=== PATIENT | male | born 1995 | race Caucasian/White ===

== ENCOUNTER 2018-04-06 16:28 | Emergency (ER) | payer OTHER, MEDICAID, SELFPAY ==
--- NOTE | 2018-04-06 16:36 | ED_ITS ---
HPI - URI/Sore Throat <SANTOS Hope - Last Filed: 04/06/18 21:59> General Chief Complaint: Nausea/Vomiting/Diarrhea Stated Complaint: sick Time Seen by Provider: 04/06/18 16:35 Source: patient Mode of arrival: ambulatory Limitations: no limitations History of Present Illness HPI Narrative: 22-year-old healthy male that is a nonsmoker here for complaint of having cold and cough like symptoms over the past several days. He also reports that he has had periodic nausea and vomiting as well. He denies having a fever although he does state he has had some chills. He denies other contacts having similar symptoms. In between. The nausea vomiting he has been able to tolerate p.o. fluids. He denies any other concerns or complaints at this timeframe. MD Complaint: nasal congestion and other Related Data Previous Rx's Medication Instructions Recorded ondansetron 4 mg PO BID-TID PRN #10 tab 04/06/18 Review of Systems <SANTOS Hope - Last Filed: 04/06/18 21:59> Constitutional Denies chills, Denies fever(s), Denies lethargy and Denies weakness Eyes Denies change in vision, Denies eye discharge, Denies irritation and Denies loss of vision ENT Ears, Nose, Mouth, and Throat: Denies change in voice, Denies neck pain and Denies sore throat Cardiovascular Denies chest pain, Denies irregular heart rhythm, Denies lightheadedness, Denies palpitations, Denies dyspnea, Denies dyspnea on exertion and Denies orthopnea Respiratory Denies cough, Denies dyspnea, Denies dyspnea on exertion and Denies wheezing Gastrointestinal Gastrointestinal: Denies abdominal pain, Denies change in bowel habits, Denies diarrhea, Denies nausea and Denies vomiting Genitourinary Denies hematuria, Denies flank pain, Denies urinary incontinence and Denies urinary urgency Musculoskeletal Denies neck pain Integumentary/Breasts Denies pruritus, Denies erythema, Denies rash and Denies wounds Neurologic Denies confusion, Denies loss of vision and Denies weakness Psychiatric Denies anxiety, Denies confusion, Denies depression, Denies homicidal ideation and Denies suicidal ideation Endocrine Denies palpitations Hematologic/Lymphatic Denies easy bruising Allergic/Immunologic Denies wheezing Exam <SANTOS Hope - Last Filed: 04/06/18 21:59> Initial Vital Signs Initial Vital Signs: Vital Signs Temperature 98.2 F 04/06/18 16:37 Pulse Rate 88 04/06/18 16:37 Respiratory Rate 16 04/06/18 16:37 Blood Pressure 145/76 H 04/06/18 16:37 Pulse Oximetry 98 04/06/18 16:37 Const General: cooperative and well developed Nutritional Appearance: well nourished Orientation: alert, awake, oriented x3 and not confused HENMT Mouth: oral mucosae normal, oropharynx normal and moist mucous membranes Eyes Conjunctivae: conjunctivae normal Sclera: sclerae normal Pupils: PERRL EOM: EOM intact bilaterally Resp Effort & Inspection: normal respiratory effort, able to speak in complete sentences, no respiratory distress and no use of accessory muscles Auscultation: clear to auscultation bilaterally, no rales, no rhonchi and no wheezes Cardio Rate: regular rate Rhythm: regular rhythm Heart Sounds: no click, no gallops, no murmurs and no rubs Pulses: normal peripheral pulses Skin General: no rashes or lesions noted, No jaundice and No petechiae Neuro General: alert, oriented x3, gait normal and no focal motor deficits Speech: speech normal <DO Luctia Abreu Last Filed: 04/07/18 18:32> Initial Vital Signs Initial Vital Signs: Vital Signs Temperature 98.2 F 04/06/18 16:37 Pulse Rate 88 04/06/18 16:37 Respiratory Rate 16 04/06/18 16:37 Blood Pressure 145/76 H 04/06/18 16:37 Pulse Oximetry 98 04/06/18 16:37 Course <SANTOS Hope - Last Filed: 04/06/18 21:59> Orders Ordered: Discontinued Medications Ondansetron HCl (Zofran Odt) 4 mg SL NOW ONE Stop: 04/06/18 17:02 Last Admin: 04/06/18 17:17 Dose: 4 mg Vital Signs - 8 hr 04/06/18 16:37 04/06/18 18:21 Temperature 98.2 F Pulse Rate 88 60 Respiratory Rate 16 18 Blood Pressure 145/76 H 122/61 Pulse Oximetry 98 100 <Xochitl Segundo DO - Last Filed: 04/07/18 18:32> Orders Ordered: Discontinued Medications Ondansetron HCl (Zofran Odt) 4 mg SL NOW ONE Stop: 04/06/18 17:02 Last Admin: 04/06/18 17:17 Dose: 4 mg Vital Signs - 8 hr 04/06/18 16:37 04/06/18 18:21 Temperature 98.2 F Pulse Rate 88 60 Respiratory Rate 16 18 Blood Pressure 145/76 H 122/61 Pulse Oximetry 98 100 MDM - URI/Sore Throat <SANTOS Hope - Last Filed: 04/06/18 21:59> Lab Data Lab Results 04/06/18 Range/Units 17:20 Influenza A & B (PCR) Negative (Negative) MDM Narrative Medical decision making narrative: Influenza swab was obtained and was negative. Presents as a viral illness. [id number] Tylenol or Motrin as needed for discomfort. Plenty of fluids. Zofran is prescribed to help with nausea vomiting. Follow up with primary care provider later this week. For any worsening symptoms return to the emergency room. <Xochitl Segundo DO - Last Filed: 04/07/18 18:32> Lab Data Lab Results 04/06/18 Range/Units 17:20 Influenza A & B (PCR) Negative (Negative) Discharge Plan Departure Patient Disposition: Home Clinical Impression: Viral upper respiratory illness Discharge Date/Time: 04/06/18 18:22 Interventions: ED Discharge Assessment Last Done: 04/06/18 18:21 Instructions: DI for Nausea -- Adult Activity Restrictions/Additional Instructions: Influenza swab was obtained was negative. Signs and symptoms presents as a viral illness. This will take time to resolve. Plenty of fluids and rest. Use [id number] Tylenol or Motrin as needed for discomfort or fever. Zofran is prescribed to help with nausea vomiting use as directed. Follow up with her primary care provider later this week for re-evaluation. For any worsening symptoms return emergency room Prescriptions: New ondansetron 4 mg tablet,disintegrating 4 mg PO BID-TID PRN (Reason: nausea and vomiting) Qty: 10 RF: 0 Referrals: [facility] [Provider Group] <Xochitl Segundo DO - Last Filed: 04/07/18 18:32> Cosign ED Attending Amyature Attestation: I was immediately available in the department for consultation. This documentation has been reviewed and I agree with assessment and plan. Supervised by Xochitl Segundo, DO
[2018-04-06 16:37] VITALS: BP 145/76; PULSE 88; RESP 16; TEMP 36.8; O2SAT 98
[2018-04-06] MEDS: ONDANSETRON 4 MG ODT SL (17:17)
[2018-04-06 17:38] LABS: Influenza A and B by PCR Rapid Negative (Negative)
[2018-04-06 18:21] VITALS: BP 122/61; PULSE 60; RESP 18; O2SAT 100
== END 2018-04-06 18:22 | disposition home or self-care (01) ==
PROVIDERS: Emergency Provider Nurse Practitioner Family
DX: J06.9 Acute upper respiratory infection, unspecified (principal); B97.89 Other viral agents as the cause of diseases classified elsewhere
CPT/HCPCS: 87400; 99282; 99283

== ENCOUNTER 2018-06-16 20:46 | Emergency (ER) | payer OTHER, SELFPAY ==
[2018-06-16 20:54] VITALS: BP 136/89; PULSE 98; RESP 14; TEMP 36.7; O2SAT 100
--- NOTE | 2018-06-16 21:12 | PC.NURSE ---
States he no longer needs a note for work. Encouraged to return if any needs.
== END 2018-06-16 21:13 | disposition left against medical advice (07) ==
PROVIDERS: Emergency Provider Emergency Medicine
DX: Z53.21 Procedure and treatment not carried out due to patient leaving prior to being seen by health care provider (principal)
CPT/HCPCS: 99281